=== PATIENT | female | born 1990 | race African-American/Black ===

== ENCOUNTER 2023-04-20 14:39 | Emergency (ER) | payer OTHER, SELFPAY ==
[2023-04-20] MEDS ORDERED: Ipratropium/Albuterol 3 ML NEB ONE (15:38)
[2023-04-20] MEDS ORDERED: predniSONE 20 MG TAB ONE (16:00)
== END 2023-04-20 16:20 | disposition home or self-care (01) ==
LOC: CSHERS 14:39
DX: J20.9 Acute bronchitis, unspecified (principal)
CPT/HCPCS: J7512; J7620

== ENCOUNTER 2023-12-20 21:20 | Emergency (ER) | payer SELFPAY ==
[2023-12-20 22:16] LABS: Bilirubin Neg (Negative); Blood, Urine 25 (Negative); Clarity Slightly Cloudy (Clear); Glucose, Urine (Dipstick) Normal (Negative); Ketone, Urine Negative (Negative); Leukocyte 500 (Negative); Nitrite Negative (Negative); Protein, Urine (Dipstick) 15 mg/dl (Neg-Trace); Specific Gravity, Urine 1.025 (1.005-1.030); Urobilinogen Normal mg/dL (Less than 2)
[2023-12-20 22:43] LABS: Bacteria/HPF 2+ HPF (None Seen); CAUTI Indications for Culture Dysuria,urgency,freq; RBC/HPF 0-3 HPF (0-3)
[2023-12-20 22:44] LABS: Urine Culture Reflex No No
[2023-12-21] MEDS ORDERED: Ibuprofen 200 MG TAB ONE (00:12)
== END 2023-12-21 00:36 | disposition home or self-care (01) ==
LOC: CSHERS 21:20
DX: N39.0 Urinary tract infection, site not specified (principal); K08.89 Other specified disorders of teeth and supporting structures
CPT/HCPCS: 81001; 99283

== ENCOUNTER 2025-03-04 07:46 | Emergency (ER) | payer SELFPAY ==
[2025-03-04] MEDS ORDERED: Acetaminophen 500 MG TAB ONE (09:41)
[2025-03-04 10:04] LABS: Glucose, Urine (Dipstick) Normal (Negative); Leukocyte 25 (Negative); Protein, Urine (Dipstick) Negative (Neg-Trace); Specific Gravity, Urine 1.025 (1.005-1.030)
[2025-03-04 10:07] LABS: Pregnancy Test - Urine (BHCG) Negative (Negative); Pregu Control Background? CLEAR/WHITE (CLR/WHITE); Pregu Control Bar Appear? YES (CONTROL BAR)
[2025-03-04 10:11] LABS: Bacteria/HPF 4+ HPF (None Seen); CAUTI Indications for Culture Pelvic or flank pain; Mucous/LPF 1+ LPF (<2+); RBC/HPF 0-3 HPF (0-3)
[2025-03-04 10:12] LABS: Urine Culture Reflex No No
== END 2025-03-04 11:07 | disposition home or self-care (01) ==
LOC: CSHERS 07:46
DX: N39.0 Urinary tract infection, site not specified (principal)
CPT/HCPCS: 81001; 81025; 87077; 87086; 87428; 99284